=== PATIENT | female | born 1945 | race Two or more races ===

== ENCOUNTER 2017-02-13 20:14 | Inpatient (IN) | payer MEDICARE, BC ==
[~2017-02-13 20:14] MED LIST: ALLOPURINOL300 M1 PO; AMOXICILLIN PO; ANEXSIA 5/325 M1 TAB; ANTIVERT25 MG PO; ASPIR 8181 M1 PO; ASPIR 8181 MG PO; AUGMENTIN875 MG PO; BACTRIM DS1 TAB PO; BETAGAN5 M1 OP; BETAGAN5 ML EACH EYE; BETIMOL15 M; BETIMOL15 M OP; CAPTOPRIL50 MG; CATAPRES-T0.1 MG/24 TD; CATAPRES-T1 PATCH.WK TD; CELEXA20 MG PO; CELLCEPT500 MG PO; CLONIDINE HCL0.1 MG; CLONIDINE HCL0.1 MG PO; CYMBALTA30 M1 PO; CYMBALTA30 MG; CYMBALTA30 MG PO; CYMBALTA60 MG PO; DORZOLAMIDE-TIM10 M1 OP; DURICEF500 MG PO; EQL FISH OIL 1,1 CA1 PO; EQL FISH OIL 11 EAC2 PO; FERREX 150150 M1 PO; FERREX 150150 MG PO; FERROUS SU325 ( 65; FISH OIL1 CAP; FUROSEMIDE40 MG; HECORIA1 M1 PO; HUMALOG100 U/ML; HUMALOG100 U/ML SQ; HUMALOG100 UNITS/ SC; HYDRALAZINE HCL25 MG PO; HYDRALAZINE HCL50 M1 PO; ISOSORBIDE MONO30 M1 PO; ISOSORBIDE MONO30 M4 PO; ISOSORBIDE MONO30 MG; K-DUR20 ME1 PO; KLOR-CON M20 MEQ/TAB PO; LANTUS100 U/ML; LANTUS100 U/ML SC; LANTUS100 UNITS/ SC; LASIX20 MG PO; LASIX40 M1 PO; LASIX40 MG PO; LEVAQUIN750 MG PO; LOSARTAN POTASS25 M1 PO; MAG; METOPROLOL SUC100 M1 PO; MIRALAX17 G1 PO; MULTIVITAMIN1 CAP PO; MULTIVITAMINS1 EAC6 PO; NEXIUM40 M1 PO; NEXIUM40 MG; NEXIUM40 MG PO; NORCO 5/325 TAB1 TAB PO; NORVASC10 MG; NORVASC10 MG PO; NORVASC5 M1 PO; NORVASC5 M2 PO; NOVOLOG FL100 UNIT/2; OMEGA 31 CAP PO; OS-CAL 500+D C1 EACH PO; OS-CAL 500+D31 EACH PO; PROCRIT10000 U/ML; PROGRAF1 MG PO; RAPAMUNE1 M1 PO; RAPAMUNE1 MG PO; SENNA8.6 M1 PO; SIMVASTATIN40 M1 PO; SLOW-MAG71.5 MG PO; TACROLIMUS1 MG PO; TOPROL XL100 M1 PO; TOPROL XL100 MG PO; TOPROL XL25 MG; TOPROL XL50 MG PO; TRICOR145 M1 PO; TRICOR145 M2 PO; TRICOR48 M1 PO; VALTREX500 MG PO; VENOFER100 MG/5 M; VYTORIN 10/80 T1 TAB; VYTORIN 10/80 T1 TAB PO; VYTORIN NG; VYTORIN PO; XALATAN2.5 M1 OP; XALATAN2.5 ML; XALATAN2.5 ML OP; ZESTRIL2.5 M1 PO
[2017-02-13] MEDS ORDERED: LANTUS100 UNITS/ (21:09)
[2017-02-13] MEDS ORDERED: BETAGAN5 M1 (21:11)
[2017-02-13 21:14] LABS: EOS % 0.3 % (0-7); HCT-HEMATOCRIT 37.5 % (34.0-49.0); HGB-HEMOGLOBIN 11.6 gm/dl (12.0-15.5); IMMATURE GRANULOCYTES ABSOLUTE 0.03 tho/cmm (0-0.03); IMMATURE GRANULOCYTES PERCENT 0.5 % (0-0.3); LYMPH % 3.4 % (20-45); LYMPH ABSOLUTE COUNT 0.2 tho/cmm (0.8-4.5); MCH (MEAN CORPUSCULAR HGB) 27.5 pg (28.0-32.0); MCHC MEAN CORPUSCULAR HGB CONC 30.9 % (32.0-36.0); MCV (MEAN CELL VOLUME) 88.9 fl (82.0-96.0); MEAN PLATELET VOLUME 8.6 cmc (9.4-12.4); MONO % 1.3 % (0-12); MONOCYTE ABSOLUTE COUNT 0.1 tho/cmm (0.0-1.2); NEUTROPHIL ABSOLUTE COUNT 5.9 tho/cmm (1.6-8.0); NEUTROPHIL-AUTOMATED 5.9 tho/cmm (1.6-8.0); NEUTROPHILS % 94.5 % (40-80); PLATELET COUNT 247 tho/cmm (150-450); RED BLOOD COUNT 4.22 mil/cmm (4.00-5.20); RED CELL DISTRIBUTION WIDTH 18.6 % (12.4-16.4); WHITE BLOOD COUNT 6.2 tho/cmm (4.0-10.0)
[2017-02-13 21:37] LABS: ALB/GLOB RATIO 0.7 (0.8-2.0); ALBUMIN 3.1 g/dl (3.5-5.0); ALKALINE PHOSPHATASE 85 U/L (33-138); ALT/SGPT 21 U/L (12-78); ANION GAP 14 mmol/L (0-20); AST/SGOT 30 U/L (10-40); BILIRUBIN,TOTAL 0.4 mg/dl (0-1.5); BLOOD UREA NITROGEN 43 mg/dl (6-24); CALCIUM 8.7 mg/dl (8.5-10.5); CARBON DIOXIDE-VENOUS 23 mmol/L (22-32); CHLORIDE 108 mmol/l (96-110); GLUCOSE 301 mg/dL (70-110); LIPASE 308 U/L (73-393); SODIUM 141 mmol/L (135-145); eGFR VALUE FOR BLACK 32 mL/Min
[2017-02-13 21:44] LABS: URINE BILIRUBIN NEGATIVE (NEG); URINE BLOOD NEGATIVE (NEG); URINE GLUCOSE (UA) LARGE (NEG); URINE KETONE SMALL (NEG); URINE LEUKOCYTE ESTERASE NEGATIVE (NEG); URINE NITRITE NEGATIVE (NEG); URINE PROTEIN MODERATE (NEG)
[2017-02-13 21:45] LABS: URINE APPEARANCE CLEAR; URINE COLOR YELLOW
[2017-02-13 21:58] LABS: URINE EPITHELIAL CELLS 0-1 /[HPF] (0-10); URINE RBC 0 /[HPF] (0-5); URINE WBC 0-1 /[HPF] (0-5)
[2017-02-14 03:52] LABS: C-REACTIVE PROTEIN 1.2 mg/dl (0-0.9)
[2017-02-14 06:20] LABS: HCT-HEMATOCRIT 30.2 % (34.0-49.0); HGB-HEMOGLOBIN 9.2 gm/dl (12.0-15.5); IMMATURE GRANULOCYTES ABSOLUTE 0.01 tho/cmm (0-0.03); IMMATURE GRANULOCYTES PERCENT 0.2 % (0-0.3); LYMPH % 5.9 % (20-45); LYMPH ABSOLUTE COUNT 0.3 tho/cmm (0.8-4.5); MCH (MEAN CORPUSCULAR HGB) 27.4 pg (28.0-32.0); MCHC MEAN CORPUSCULAR HGB CONC 30.5 % (32.0-36.0); MCV (MEAN CELL VOLUME) 89.9 fl (82.0-96.0); MEAN PLATELET VOLUME 8.3 cmc (9.4-12.4); MONO % 2.7 % (0-12); MONOCYTE ABSOLUTE COUNT 0.1 tho/cmm (0.0-1.2); NEUTROPHIL ABSOLUTE COUNT 4.1 tho/cmm (1.6-8.0); NEUTROPHIL-AUTOMATED 4.1 tho/cmm (1.6-8.0); NEUTROPHILS % 91.2 % (40-80); PLATELET COUNT 181 tho/cmm (150-450); RED BLOOD COUNT 3.36 mil/cmm (4.00-5.20); RED CELL DISTRIBUTION WIDTH 18.8 % (12.4-16.4); WHITE BLOOD COUNT 4.4 tho/cmm (4.0-10.0)
[2017-02-14 06:34] LABS: ANION GAP 11 mmol/L (0-20); BLOOD UREA NITROGEN 36 mg/dl (6-24); CALCIUM 7.8 mg/dl (8.5-10.5); CARBON DIOXIDE-VENOUS 21 mmol/L (22-32); CHLORIDE 114 mmol/l (96-110); CREATININE 1.43 mg/dl (0.50-1.10); GLUCOSE 234 mg/dL (70-110); MAGNESIUM 1.8 mg/dl (1.3-2.6); PHOSPHOROUS 1.4 mg/dl (2.5-4.9); SODIUM 142 mmol/L (135-145); eGFR VALUE FOR BLACK 42 mL/Min
[2017-02-15 04:47] LABS: EOS % 1.6 % (0-7); HCT-HEMATOCRIT 29.4 % (34.0-49.0); IMMATURE GRANULOCYTES ABSOLUTE 0.02 tho/cmm (0-0.03); IMMATURE GRANULOCYTES PERCENT 0.8 % (0-0.3); LYMPH % 19.3 % (20-45); LYMPH ABSOLUTE COUNT 0.5 tho/cmm (0.8-4.5); MCH (MEAN CORPUSCULAR HGB) 27.3 pg (28.0-32.0); MCHC MEAN CORPUSCULAR HGB CONC 30.6 % (32.0-36.0); MCV (MEAN CELL VOLUME) 89.1 fl (82.0-96.0); MEAN PLATELET VOLUME 8.1 cmc (9.4-12.4); MONOCYTE ABSOLUTE COUNT 0.2 tho/cmm (0.0-1.2); NEUTROPHIL ABSOLUTE COUNT 1.8 tho/cmm (1.6-8.0); NEUTROPHIL-AUTOMATED 1.8 tho/cmm (1.6-8.0); NEUTROPHILS % 72.3 % (40-80); PLATELET COUNT 166 tho/cmm (150-450); RED CELL DISTRIBUTION WIDTH 18.8 % (12.4-16.4); WHITE BLOOD COUNT 2.5 tho/cmm (4.0-10.0)
[2017-02-15 04:59] LABS: ANION GAP 11 mmol/L (0-20); BLOOD UREA NITROGEN 27 mg/dl (6-24); CALCIUM 7.8 mg/dl (8.5-10.5); CARBON DIOXIDE-VENOUS 21 mmol/L (22-32); CHLORIDE 113 mmol/l (96-110); CREATININE 1.33 mg/dl (0.50-1.10); MAGNESIUM 1.7 mg/dl (1.3-2.6); POTASSIUM 3.5 mmol/L (3.7-5.1); SODIUM 141 mmol/L (135-145); eGFR VALUE FOR BLACK 46 mL/Min
[2017-02-15 05:22] LABS: GLUCOSE 51 mg/dL (70-110)
[2017-02-15 23:11] LABS: ABG CO2 ARTERIAL 18 mmol/L (21-27); ARTERIAL BLD GAS O2 SATURATION 87 % (95-98); ARTERIAL BLOOD GAS PCO2 28 mmHg (32-45); ARTERIAL PO2 53 mmHg (70-100); BICARBONATE 17 mmol/L (21-28); BLOOD GAS BASE EXCESS -6 mM/L (-/+3); PH 7.41 Units (7.35-7.45)
[2017-02-16 04:49] LABS: HCT-HEMATOCRIT 31.9 % (34.0-49.0); HGB-HEMOGLOBIN 9.8 gm/dl (12.0-15.5); MCH (MEAN CORPUSCULAR HGB) 26.9 pg (28.0-32.0); MCHC MEAN CORPUSCULAR HGB CONC 30.7 % (32.0-36.0); MCV (MEAN CELL VOLUME) 87.6 fl (82.0-96.0); MEAN PLATELET VOLUME 8.7 cmc (9.4-12.4); NEUTROPHIL-AUTOMATED 3.1 tho/cmm (1.6-8.0); PLATELET COUNT 213 tho/cmm (150-450); RED BLOOD COUNT 3.64 mil/cmm (4.00-5.20); RED CELL DISTRIBUTION WIDTH 18.7 % (12.4-16.4)
[2017-02-16 04:57] LABS: ALBUMIN 2.5 g/dl (3.5-5.0); ANION GAP 12 mmol/L (0-20); BLOOD UREA NITROGEN 20 mg/dl (6-24); CALCIUM 7.9 mg/dl (8.5-10.5); CARBON DIOXIDE-VENOUS 21 mmol/L (22-32); CHLORIDE 112 mmol/l (96-110); CREATININE 1.35 mg/dl (0.50-1.10); GLUCOSE 72 mg/dL (70-110); POTASSIUM 3.8 mmol/L (3.7-5.1); SODIUM 141 mmol/L (135-145); eGFR VALUE FOR BLACK 45 mL/Min
[2017-02-16 05:08] LABS: WHITE BLOOD COUNT 4.4 tho/cmm (4.0-10.0)
[2017-02-16 07:31] LABS: BAND % 25 % (0-20); BAND ABSOLUTE COUNT 1.1 tho/cmm (0-2.0); EOSINOPHIL % 1 % (0-7)
[2017-02-17 05:44] LABS: BASO % 0.3 % (0-2); EOS % 3.8 % (0-7); EOSINOPHIL ABSOLUTE COUNT 0.1 tho/cmm (0.0-0.7); HCT-HEMATOCRIT 27.9 % (34.0-49.0); HGB-HEMOGLOBIN 8.7 gm/dl (12.0-15.5); IMMATURE GRANULOCYTES ABSOLUTE 0.01 tho/cmm (0-0.03); IMMATURE GRANULOCYTES PERCENT 0.3 % (0-0.3); LYMPH % 23.4 % (20-45); LYMPH ABSOLUTE COUNT 0.7 tho/cmm (0.8-4.5); MCH (MEAN CORPUSCULAR HGB) 26.9 pg (28.0-32.0); MCHC MEAN CORPUSCULAR HGB CONC 31.2 % (32.0-36.0); MCV (MEAN CELL VOLUME) 86.4 fl (82.0-96.0); MEAN PLATELET VOLUME 8.6 cmc (9.4-12.4); MONO % 11.9 % (0-12); MONOCYTE ABSOLUTE COUNT 0.4 tho/cmm (0.0-1.2); NEUTROPHIL ABSOLUTE COUNT 1.9 tho/cmm (1.6-8.0); NEUTROPHIL-AUTOMATED 1.9 tho/cmm (1.6-8.0); NEUTROPHILS % 60.3 % (40-80); PLATELET COUNT 171 tho/cmm (150-450); RED BLOOD COUNT 3.23 mil/cmm (4.00-5.20); RED CELL DISTRIBUTION WIDTH 18.1 % (12.4-16.4); WHITE BLOOD COUNT 3.1 tho/cmm (4.0-10.0)
[2017-02-17 05:51] LABS: ANION GAP 13 mmol/L (0-20); BLOOD UREA NITROGEN 22 mg/dl (6-24); CALCIUM 7.8 mg/dl (8.5-10.5); CARBON DIOXIDE-VENOUS 22 mmol/L (22-32); CHLORIDE 110 mmol/l (96-110); CREATININE 1.35 mg/dl (0.50-1.10); POTASSIUM 3.6 mmol/L (3.7-5.1); SODIUM 141 mmol/L (135-145); eGFR VALUE FOR BLACK 45 mL/Min
[2017-02-17 06:01] LABS: GLUCOSE 141 mg/dL (70-110)
== END 2017-02-17 17:10 | disposition home health service (06) | DRG 391 ==
LOC: EDMED 20:14 → EMR2 02-14 00:21 → 5WE 02-14 01:26
PROVIDERS: Emergency Medicine; Family Medicine; Registered Nurse; ADMIT Hospitalist
DX: A08.11 Acute gastroenteropathy due to Norwalk agent (principal); N18.6 End stage renal disease; N17.9 Acute kidney failure, unspecified; E11.22 Type 2 diabetes mellitus with diabetic chronic kidney disease; I13.0 Hypertensive heart and chronic kidney disease with heart failure and stage 1 through stage 4 chronic kidney disease, or unspecified chronic kidney disease; I50.32 Chronic diastolic (congestive) heart failure; Z94.0 Kidney transplant status; J44.9 Chronic obstructive pulmonary disease, unspecified; D64.9 Anemia, unspecified; K52.89 Other specified noninfective gastroenteritis and colitis; M10.9 Gout, unspecified; E83.39 Other disorders of phosphorus metabolism; R09.02 Hypoxemia; J45.909 Unspecified asthma, uncomplicated; H40.9 Unspecified glaucoma; E66.9 Obesity, unspecified; I25.10 Atherosclerotic heart disease of native coronary artery without angina pectoris; Z95.5 Presence of coronary angioplasty implant and graft; Z68.35 Body mass index [BMI] 35.0-35.9, adult
CPT/HCPCS: G0378; G8978-GP-CJ; G8979-GP-CI; G8980-GP-CJ; G8987-GO-CI; G8988-GO-CH; G8989-GO-CI; J1650; J1815; J1940; J2405; J7030; J7050; J7507; J7520